=== PATIENT | female | born 1995 | race Caucasian/White ===

== ENCOUNTER 2016-12-14 02:14 | Emergency (ER) | payer MEDICAID ==
[~2016-12-14] VITALS: Ht 154.9 cm; Wt 40.8 kg
--- NOTE | 2016-12-14 02:30 | NUR ---
To bed 2 a 21 yo female bibself with mid epigastric intermittent pulling pain at 8/10, positive for nausea but no vomiting at this time. Per patient pain started 2 weeks ago, worse today. Patient is aaox4, no s/s of acute distress. Breathing even and unlabored. Skin warm and dry to touch. Awaiting for er md murillo.
[2016-12-14] MEDS ORDERED: IV SET PRIMARY 1 EA INFUS.SET MC ONE (02:44)
[2016-12-14] MEDS ORDERED: MORPHINE SULFATE INJ 2 MG/ML DISP.SYRIN ONE (02:44)
[2016-12-14] MEDS ORDERED: ONDANSETRON HCL/PF 4 MG/2 ML VIAL ONE (02:44)
[2016-12-14] MEDS ORDERED: IV NS 0.9% 1,000 ML ONE (02:44)
--- NOTE | 2016-12-14 02:45 | NUR ---
started a saline lock on right ac [id number], blood drawn and sent to lab.
[2016-12-14 02:53] LABS: BASOPHILS % (AUTO) 0.5 % (0.0-2.0); EOSINOPHILS # (AUTO) 0.1 /CMM (0.0-0.7); EOSINOPHILS % (AUTO) 0.6 % (0.0-6.0); HEMATOCRIT 40 % (33-45); HEMOGLOBIN 13.4 g/dL (11.5-14.8); LYMPHOCYTES # (AUTO) 2.6 /CMM (0.8-4.8); LYMPHOCYTES % (AUTO) 29.4 % (20.0-44.0); MEAN CORPUSCULAR HEMOGLOBIN 29 PG (26.0-33.0); MEAN CORPUSCULAR HGB CONC 33 g/dl (31.0-36.0); MEAN CORPUSCULAR VOLUME 88 fL (82-100); MONOCYTES # (AUTO) 0.5 /CMM (0.1-1.30); MONOCYTES % (AUTO) 5.9 % (2.0-12.0); NEUTROPHILS # (AUTO) 5.6 /CMM (1.8-8.9); NEUTROPHILS % (AUTO) 63.6 % (43.0-81.0); PLATELET COUNT (AUTO) 320 /CMM (150-450); RDW COEFFICIENT OF VARIATION 11.9 (11.5-15.0); RED BLOOD CELL COUNT(AUTO) 4.58 MIL/uL (4.0-5.2); WHITE BLOOD COUNT (AUTO) 8.8 K/uL (4.3-11.0)
[2016-12-14 02:54] LABS: APPEARANCE,URINE SL CLOUDY (CLEAR); BILIRUBIN,URINE NEGATIVE (NEGATIVE); BLOOD, URINE 1+ Ery/uL (NEGATIVE); COLOR,URINE YELLOW (YELLOW); KETONES,URINE TRACE (NEGATIVE); LEUKOCYTE ESTERASE ,URINE 1+ (NEGATIVE); NITRITE, URINE POSITIVE (NEGATIVE); PROTEIN,URINE NEGATIVE (NEGATIVE); UGLUCOSE NEGATIVE (NEGATIVE); UROBILINOGEN,URINE 0.2 EU/dL (0.2)
[2016-12-14 02:55] LABS: PREGNANCY TEST URINE QUAL NEGATIVE (NEGATIVE)
[2016-12-14 02:59] LABS: BACTERIA,URINE 4+ /HPF (None Seen)
[2016-12-14] MEDS ORDERED: IV NS 0.9% 1,000 ML BAG IV ONE (03:00)
[2016-12-14] MEDS ORDERED: ONDANSETRON HCL/PF 4 MG/2 ML VIAL IVP ONE (03:00)
[2016-12-14] MEDS ORDERED: MORPHINE SULFATE INJ 2 MG/ML DISP.SYRIN IV ONE (03:00)
[2016-12-14 03:01] LABS: ADD URINE CULTURE YES; SQUAMOUS EPITHELIAL CELL,UR Moderate /HPF (None Seen); WBC,URINE 20-25 /HPF (0-3)
[2016-12-14 03:02] LABS: MUCUS,URINE Rare /LPF (None Seen)
[2016-12-14 03:17] LABS: CALCIUM, SERUM 8.6 mg/dL (8.5-10.1); CREATININE 0.9 mg/dL (0.6-1.3); POTASSIUM 3.9 mmol/L (3.5-5.1)
[2016-12-14 03:22] LABS: BILIRUBIN,DIRECT 0.1 mg/dL (0.0-0.2); BILIRUBIN,TOTAL 0.6 mg/dL (0.2-1.0); TOTAL PROTEIN, SERUM 6.9 g/dL (6.4-8.2)
--- NOTE | 2016-12-14 04:00 | NUR ---
Dr Kendall at bedside.
--- NOTE | 2016-12-14 04:09 | NUR ---
IV removed. Catheter intact and site benign. Pressure and 4x4 applied to site. No bleeding noted. Patient discharged to home in stable condition. Written and verbal after care instructions given. Patient verbalizes understanding of instruction. Patient is ambulatory with steady gait.
[2016-12-14 04:11] VITALS: BP 117/76
== END 2016-12-14 04:11 | disposition home or self-care (01) ==
LOC: ER 02:20
DX: K59.00 Constipation, unspecified (principal); N39.0 Urinary tract infection, site not specified; K85.90 Acute pancreatitis without necrosis or infection, unspecified
CPT/HCPCS: 36415; 80048-TC; 80076-TC; 81000-TC; 83690-TC; 84703-TC; 85025-TC; 87086-TC; 87186-TC; A4606; J2270; J2405; J7030; Z7610